=== PATIENT | male | born 1970 | race Caucasian/White ===

== ENCOUNTER 2020-10-15 15:44 | Emergency (ER) | payer BC, OTHER ==
[~2020-10-15] VITALS: Ht 167.6 cm; Wt 100.0 kg
[2020-10-15] MEDS ORDERED: HYDROCODONE/ACETAMINOPHEN 5/325MG TABLET PO ONE (16:15)
[2020-10-15] MEDS ORDERED: NAP5EC MT (17:40)
[2020-10-15 18:18] VITALS: BP 155/82
== END 2020-10-15 18:19 | disposition home or self-care (01) ==
LOC: EDBD 15:44 → ER 15:44
DX: S83.014A Lateral dislocation of right patella, initial encounter (principal); X50.1XXA Overexertion from prolonged static or awkward postures, initial encounter; Y93.89 Activity, other specified; Y92.012 Bathroom of single-family (private) house as the place of occurrence of the external cause
CPT/HCPCS: 73562; 99283; L1830